=== PATIENT | female | born 1930 | race Caucasian/White ===

== ENCOUNTER 2016-04-28 17:22 | Emergency (ER) | payer MEDICARE, OTHER ==
[~2016-04-28] VITALS: Ht 157.5 cm; Wt 46.0 kg
[~2016-04-28 17:22] MED LIST: DICL50 PO; FENT50DI T-DERMAL; LISI10 PO; MEVA40TA6 PO; MISO200 PO; TRAM50 PO
[2016-04-28 17:25] VITALS: BP 133/71; PULSE 86; RESP 18; TEMP 98; O2SAT 96
[2016-04-28] MEDS ORDERED: TRAM50TA PO (17:36)
[2016-04-28] MEDS ORDERED: ZANT150T2 PO (17:36)
[2016-04-28] MEDS ORDERED: FENT50DI T-DERMAL (17:36)
[2016-04-28] MEDS ORDERED: LOVA40TA PO (17:36)
[2016-04-28] MEDS ORDERED: LISI10TA3 PO (17:36)
[2016-04-28] MEDS ORDERED: DICL100T PO (17:36)
[2016-04-28] MEDS ORDERED: MISO200T PO (17:36)
--- NOTE | 2016-04-28 18:34 | PD ---
HPI Chief Complaint: Hip Injury Time Seen by Provider: 18:31 Travel History International Travel<30 days: No Contact w/Intl Traveler<30days: No Traveled to known affect area: No History of Present Illness HPI 85-year-old female that presents to the ED for evaluation of trip and fall. Patient came here by ambulance from assisted living facility. Patient apparently had a trip and fall into her left side and has been having pain on her left hip. She was on the floor for a couple of minutes when staff showed up and try to help her back into her feet but she was not able to put any weight on the left hip. Ambulance was called and they brought her here. 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 She states that she has 3 out of 10 pain in the hip as well as she doesn't move she doesn't really have much pain. Pain is reproducible with touch as well as with movement. She is able to move it but not put weight on it. She denies any prior injuries to this area. She denies any head injury or loss of consciousness. Denies any blood thinners. No abdominal pain. No nausea or vomiting. She does have an allergic to tetracyclines. Pain does not radiate. Pain stays mainly on the hip. PFSH Past Medical History Arthritis: Yes (rheumatoid) Blood Disorders: No Heart Rhythm Problems: No Cardiac Catheterization: No Cardiovascular Problems: Yes High Cholesterol: Yes Congestive Heart Failure: No Diabetes: No Diminished Hearing: No Hypertension: No Musculoskeletal: Yes (SPINAL STENOSIS) Respiratory: Yes (COPD) Immunizations Current: Yes Myocardial Infarction: No Past Surgical History Cholecystectomy: Yes Coronary Artery Bypass Graft: No Thoracic Surgery: Yes (L. MASTECTOMY AND LUMPECTOMY) Other Surgery: Yes (LEFT BREST MASTECTOMY WITH LYMP REMOVAL) Social History Alcohol Use: No Tobacco Use: Yes (<1 ppd) Substance Use: No Allergies-Medications (Allergen,Severity, Reaction): Coded Allergies: Tetracyclines (Verified Allergy, Severe, TONGUE SWELLS, 04/28/16) TONGUE SWELLS Reported Meds & Prescriptions Reported Meds & Active Scripts Active Walker Rolling/GetGo (Device) 1 Mis Mis 1 Ea .ROUTE DIRECTED Diclofenac Sodium DR (Diclofenac Sodium) 75 Mg Tabdr 75 Mg PO BID PRN Lortab (Hydrocodone-Acetaminophen) 5-325 Mg Tab 1 Tab PO Q6H PRN Reported Diclofenac Sodium ER 24 HR (Diclofenac Sodium) 100 Mg Sonia 50 Mg PO DAILY Fentanyl Patch 72 HR (Fentanyl) 50 Mcg/Hr Patch 50 Mcg T-DERMAL Q72H Remove old patch when new one placed. Lisinopril 10 Mg Tab 10 Mg PO DAILY Lovastatin 40 Mg Tab 40 Mg PO DAILY Misoprostol 200 Mcg Tab 200 Mcg PO DAILY Tramadol (Tramadol HCl) 50 Mg Tab 50 Mg PO Q8H PRN Zantac (Ranitidine HCl) 150 Mg Tab 150 Mg PO BID Review of Systems General / Constitutional: No: Fever, Chills, Weight Gain, Weight Loss, Other Eyes: No: Diploplia, Blurred Vision, Photophobia, Drainage, Redness, Foreign Body Sensation, Pain, Tearing, Blind Spots, Visual changes, Blindness, Other HENT: No: Headaches, Vertigo, Lightheadedness, Sore Throat, Rhinitis, Rhinorrhea, Congestion, Nosebleed, Neck Stiffness, Neck Pain, Masses, Gingival Bleeding, Dental Difficulties, Ear Discharge, Earache, Other Cardiovascular: No: Chest Pain or Discomfort, Palpitations, Irregular Rhythm, Tachycardia, Diaphoresis, Syncope, Dyspnea on exertion, Varicosities, Edema, Cyanosis, Varicosities, Phlebitis, Claudication, Other Respiratory: No: Cough, Shortness of Breath, Wheezing, Sneezing, Orthopnea, Hemoptysis, Stridor, Night Sweats, Pleuritic Pain, Other Gastrointestinal: No: Nausea, Vomiting, Diarrhea, Abdominal Pain, Hematemesis, Hematochezia, Constipation, Changes in Bowel Habits, Indigestion, Dysphagia, Loss of Appetite, Other Genitourinary: No: Urgency, Frequency, Dysuria, Nocturia, Hematuria, Decreased Urinary Output, Oliguria, Hesitancy, Dribbling, Incontinence, Pelvic Pain, Flank Pain, Dyspareunia, Discharge, Dysmenorrhea, Menorrhagia, Metorrhagia, Vaginal Bleeding, Other Musculoskeletal: Positive: Limited ROM, Pain, No: Myalgias, Arthralgias, Weakness, Cramping, Edema, Atrophy, Other Skin: No Rash, No Itching, No Dryness, No Lumps, No Hives, No Change in Pigmentation, No Change in nails, No Alopecia, No Lesions, No Breast Lumps, No Breast Tenderness, No Breast Swelling, No Other Neurologic: No: Weakness, Dizziness, Syncope, Focal Abnormalities, Coordination Problem, Tremor, Ataxia, Headache, Change in Mentation, Slurred Speech, Paresthesia, Incontinence, Seizures, Sensory Disturbance, Other Psychiatric: No: Anxiety, Depression, Suicidal Ideations, Disorder of Thought, Mood Disorder, Substance Abuse, Homicidal Ideation, Other Endocrine: No: Heat Intolerance, Cold Intolerance, Polyuria, Polydipsia, Other Hematologic/Lymphatic: No: Easy Bruising, Lymph Node Enlargement, Other Physical Exam Narrative GENERAL: SKIN: Warm and dry. HEAD: Atraumatic. Normocephalic. EYES: Pupils equal and round 4 mm reactive to light and accommodation. No scleral icterus. No injection or drainage. ENT: No nasal bleeding or discharge. Mucous membranes pink and moist. Tongue is midline. No Uvula deviation. NECK: Trachea midline. No JVD. CARDIOVASCULAR: Regular rate and rhythm. No murmurs, S3, S4. RESPIRATORY: No accessory muscle use. Clear to auscultation. Breath sounds equal bilaterally. GASTROINTESTINAL: Abdomen soft, non-tender, nondistended. Hepatic and splenic margins not palpable. MUSCULOSKELETAL: Extremities without clubbing, cyanosis, or edema. No obvious deformities. Full range of motion of the upper extremities with no pain. No lumbar, thoracic, cervical spine tenderness to palpation. Patient able to move the left hip but has pain on the lateral aspect of the hip. No obvious bruising or deformity noted. 2+ pulses bilaterally. Neurovascular intact. Knees and ankles as well as the toes appear to be intact. Feet appear to be intact. NEUROLOGICAL: Awake and alert. No obvious cranial nerve deficits. Motor grossly within normal limits. Five out of 5 muscle strength in the arms and legs. Normal speech. PSYCHIATRIC: Appropriate mood and affect; insight and judgment normal. Data Data Last Documented VS Vital Signs Date Time Temp Pulse Resp B/P Pulse Ox O2 Delivery O2 Flow Rate FiO2 04/28/16 18:57 18 98 04/28/16 17:25 98.0 86 133/71 Orders Hip, Uni(Ap&Lat) W Ap Pelvis (04/28/16 ) Ct Hip W/O Contrast (04/28/16 ) MDM Medical Decision Making Medical Screen Exam Complete: Yes Emergency Medical Condition: Yes Medical Record Reviewed: Yes Interpretation(s) Last Impressions Lower Extremity CT 04/28/16 0000 Signed Impressions: Service Date/Time: Thursday, April 28, 2016 20:05 - CONCLUSION: 1. Nondisplaced fractures through the superior and central portion of the acetabulum and through the inferior pubic ramus. 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 Amandeep Cox MD Hip and Pelvis X-Ray 04/28/16 0000 Signed Impressions: Service Date/Time: Thursday, April 28, 2016 17:45 - CONCLUSION: 1. Subtle lucency of superior acetabulum which may represent a nondisplaced fracture. This could be confirmed with CT. Amandeep Cox MD Differential Diagnosis Fall versus fracture versus contusion Narrative Course 85-year-old female that presents to the ED for evaluation of fall to the left hip. Patient was properly examined and was found to have signs and symptoms consistent with appears to be hip injury. X-rays were ordered. X-ray showed possible fracture of the cerebellum. Recommendation for CT. CT was ordered and showed a fracture of the acetabulum as well as pelvis. Case was discussed with my attending who was made aware of all findings as well as the fact the patient and she comes from assisted living facility with assistance from the facility already. My attending agrees this are non surgical fractures and no immediate ortho consult required. My attending recommends that we discuss the case with the patient. I discussed with the patient possibility of admission for this versus sending her back to this her [facility] facility. She prefers to go back. She understands that she needs to follow up with orthopedic surgeon. Patient will be sent home with prescription for Lortab, diclofenac sodium, walker. Patient states that she already uses a wheelchair at home. Patient understands reasons to come back. Patient was given results of the imaging. account services manager was contacted for transfer back to assisted living facility. See ED worsening symptoms. Diagnosis Primary Impression: Acetabulum fracture, left Qualified Code: S32.402A - Closed nondisplaced fracture of left acetabulum, unspecified portion of acetabulum, initial encounter Referrals: Isak Mejia MD Patient Instructions: Narcotic given in the ED Additional Instructions: Patient is to be nonweightbearing. Follow up with orthopedic doctor. Take medication as needed. Patient is to go about the facility she requires assistance including walker or wheelchair. See ED for any worsening symptoms. Med/Other Pt SpecificInfo: Prescription(s) given Scripts Walker Rolling/GetGo 1 Mis Mis #1 Ea .route As Directed Prov:Suraj Figueroa MD 04/28/[address] 75 Mg Tabdr75 Mg PO BID PRN (PAIN SCALE 1 TO 10) #20 TAB Prov:Suraj Figueroa MD 04/28/16 Hydrocodone-Acetaminophen (Lortab)5-325 Mg Tab1 Tab PO Q6H PRN (PAIN) #20 TAB Prov:Suraj Figueroa MD 04/28/16 Disposition: 01 DISCHARGE HOME Condition: Stable Domingo oHffman Apr 28, 2016 18:34
--- NOTE | 2016-04-28 19:27 | RADRPT ---
EXAM DATE/TIME: 04/28/2016 17:45 [facility] COMPARISON: No previous studies available for comparison. INDICATIONS : Left hip pain after fall today. MEDICAL HISTORY : None. SURGICAL HISTORY : None. ENCOUNTER: Initial ACUITY: 1 day PAIN SCORE: 5/10 LOCATION: Left Hip. FINDINGS: Proximal left femur appears intact. There is a subtle lucency through the superior acetabulum that ma y represent a nondisplaced fracture. This could be confirmed with CT examination. Bones are osteopeni c. CONCLUSION: 1. Subtle lucency of superior acetabulum which may represent a nondisplaced fracture. This could be c onfirmed with CT. Amandeep Cox MD on April 28, 2016 at 19:23 Board Certified Radiologist. This report was verified electronically.
--- NOTE | 2016-04-28 21:05 | RADRPT ---
EXAM DATE/TIME: 04/28/2016 20:05 [facility] COMPARISON: No previous studies available for comparison. INDICATIONS : Trauma; fall. Patient complains of left hip pain. RADIATION DOSE: 6.60 CTDIvol (mGy) MEDICAL HISTORY : Chronic obstructive pulmonary disease. SURGICAL HISTORY : Cholecystectomy. Mastectomy, left ENCOUNTER: Initial ACUITY: 1 day PAIN SCALE: 7/10 LOCATION: Left hip TECHNIQUE: Volumetric scanning of the hip was performed. Using automated exposure control and adjustment of the mA and/or kV according to patient size, radiation dose was kept as low as reasonably achievable to o btain optimal diagnostic quality images. FINDINGS: There are nondisplaced fractures through the superior and central portion of the acetabulum and throu gh the inferior pubic ramus. The proximal left femur is intact. No dislocation. CONCLUSION: 1. Nondisplaced fractures through the superior and central portion of the acetabulum and through the inferior pubic ramus. 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 Amandeep Cox MD on April 28, 2016 at 20:38 Board Certified Radiologist. This report was verified electronically.
[2016-04-28] MEDS ORDERED: DICL75TA PO (21:11)
[2016-04-28] MEDS ORDERED: HYDR-3533 PO (21:11)
[2016-04-28] MEDS ORDERED: GETGO ROLLING W1 MI1 (21:11)
[2016-04-29 07:08] VITALS: BP 174/78; PULSE 88
[2016-04-29] MEDS ORDERED: ACETAMINOPHEN/HYDROcodone 325 MG/5 MG TAB PO ONE (07:15)
== END 2016-04-29 09:43 | disposition home or self-care (01) ==
LOC: NEPE 17:22 → NEPA 04-29 09:43
DX: S32.492A Other specified fracture of left acetabulum, initial encounter for closed fracture (principal); M06.9 Rheumatoid arthritis, unspecified; E78.00 Pure hypercholesterolemia, unspecified; M48.00 Spinal stenosis, site unspecified; F17.210 Nicotine dependence, cigarettes, uncomplicated; W01.0XXA Fall on same level from slipping, tripping and stumbling without subsequent striking against object, initial encounter; Y93.9 Activity, unspecified; Y92.9 Unspecified place or not applicable; Y99.9 Unspecified external cause status
CPT/HCPCS: 73502; 73700

== ENCOUNTER 2016-06-09 23:59 | Emergency (ER) | payer MEDICARE, OTHER ==
[~2016-06-09] VITALS: Ht 157.5 cm; Wt 43.0 kg
[~2016-06-09 23:59] MED LIST changes: +DICL100T PO; -DICL50 PO; +DICL75TA PO; +GETGO ROLLING W1 MI1; +HYDR-3533 PO; -LISI10 PO; +LISI10TA3 PO; +LOVA40TA PO; -MEVA40TA6 PO; -MISO200 PO; +MISO200T PO; -TRAM50 PO; +TRAM50TA PO; +ZANT150T2 PO
[2016-06-10 00:03] VITALS: BP 207/91; PULSE 93; RESP 21; TEMP 97.6; O2SAT 98
[2016-06-10] MEDS ORDERED: SODIUM CHLOR 0.9% 1000 ML INJ 1,000 ML IV ONE (00:15)
[2016-06-10] MEDS ORDERED: ONDANSETRON HCL 4 MG/2 ML VIAL IV PUSH ONE (00:15)
--- NOTE | 2016-06-10 00:20 | PD ---
HPI Chief Complaint: Cold / Flu Symptoms Time Seen by Provider: 00:07 Travel History International Travel<30 days: No Contact w/Intl Traveler<30days: No Traveled to known affect area: No History of Present Illness HPI 85-year-old female complains of abdominal cramping with nausea vomiting and diarrhea. Patient states that the symptoms started around noontime today. Patient states that abdominal pain is mild intermittent cramping pain diffuse over the abdomen. Patient denies any pain radiation. Patient denies any headache. Patient denies any chest pain or shortness of breath. Patient states that she has intermittent nausea vomiting and diarrhea. Patient denies any dysuria or frequency. Patient denies any vaginal discharge or bleeding. Patient denies any fever chills. Patient denies recent travel. EMS was called. Patient was transported to the ED. EMS personnel reported Patient was in and out of atrial fibrillation on the way to the ED on the monitor. Patient denies any history of cardiac arrhythmia. Patient denies history hypertension, diabetes, dyslipidemia. Patient has history of a back pain and on pain medications. PFSH Past Medical History Arthritis: Yes (rheumatoid) Blood Disorders: No Heart Rhythm Problems: No Cardiac Catheterization: No Cardiovascular Problems: Yes High Cholesterol: Yes Congestive Heart Failure: No Diabetes: No Diminished Hearing: No Hypertension: No Musculoskeletal: Yes (SPINAL STENOSIS) Respiratory: Yes (COPD) Immunizations Current: Yes Myocardial Infarction: No ?: Not Past Surgical History Cholecystectomy: Yes Coronary Artery Bypass Graft: No Thoracic Surgery: Yes (L. MASTECTOMY AND LUMPECTOMY) Other Surgery: Yes (LEFT BREST MASTECTOMY WITH LYMP REMOVAL) Social History Alcohol Use: No Tobacco Use: No Substance Use: No Allergies-Medications (Allergen,Severity, Reaction): Coded Allergies: Tetracyclines (Verified Allergy, Severe, TONGUE SWELLS, 06/10/16) TONGUE SWELLS Reported Meds & Prescriptions Reported Meds & Active Scripts Active Walker Rolling/GetGo (Device) 1 Mis Mis 1 Ea .ROUTE DIRECTED Lortab (Hydrocodone-Acetaminophen) 5-325 Mg Tab 1 Tab PO Q6H PRN Reported Fentanyl Patch 72 HR (Fentanyl) 50 Mcg/Hr Patch 50 Mcg T-DERMAL Q72H Remove old patch when new one placed. Tramadol (Tramadol HCl) 50 Mg Tab 50 Mg PO Q8H PRN Review of Systems General / Constitutional: No: Fever Eyes: No: Visual changes HENT: No: Headaches Cardiovascular: No: Chest Pain or Discomfort Respiratory: No: Shortness of Breath Gastrointestinal: Positive: Nausea, Vomiting, Diarrhea, Abdominal Pain Genitourinary: No: Dysuria Musculoskeletal: No: Pain Skin: No Rash Neurologic: No: Weakness Psychiatric: No: Depression Endocrine: No: Polydipsia Hematologic/Lymphatic: No: Easy Bruising Physical Exam Narrative GENERAL: Well-nourished, well-developed patient. SKIN: Warm and dry. HEAD: Normocephalic. EYES: No scleral icterus. No injection or drainage. NECK: Supple, trachea midline. No JVD or lymphadenopathy. CARDIOVASCULAR: Regular rate and rhythm without murmurs, gallops, or rubs. RESPIRATORY: Breath sounds equal bilaterally. No accessory muscle use. GASTROINTESTINAL: Abdomen soft, non-tender, nondistended. MUSCULOSKELETAL: No cyanosis, or edema. BACK: Nontender without obvious deformity. No CVA tenderness. Neurologic exam normal. Data Data Last Documented VS Vital Signs Date Time Temp Pulse Resp B/P Pulse Ox O2 Delivery O2 Flow Rate FiO2 06/10/16 02:51 92 18 97 06/10/16 00:30 168/76 06/10/16 00:10 Room Air 06/10/16 00:03 97.6 Orders Electrocardiogram (06/10/16 00:07) Complete Blood Count With Diff (06/10/16 00:07) Comprehensive Metabolic Panel (06/10/16 00:07) Prothrombin Time / Inr (Pt) (06/10/16 00:07) Act Partial Throm Time (Ptt) (06/10/16 00:07) Lipase (06/10/16 00:07) Urinalysis - C+S If Indicated (06/10/16 00:07) Chest, Single Ap (06/10/16 00:07) Iv Access Insert/Monitor (06/10/16 00:07) Ecg Monitoring (06/10/16 00:07) Oximetry (06/10/16 00:07) Sodium Chlor 0.9% 1000 Ml Inj (Ns 1000 M (06/10/16 00:15) Ondansetron Inj (Zofran Inj) (06/10/16 00:15) Creatine Kinase (Cpk) (06/10/16 00:07) Troponin I (06/10/16 00:07) Thyroid Stimulating Hormone (06/10/16 00:07) Urine Culture (06/10/16 00:40) Labs Laboratory Tests Test 06/10/16 06/10/16 00:15 00:40 White Blood Count 17.1 TH/MM3 Red Blood Count 4.21 MIL/MM3 Hemoglobin 13.2 GM/DL Hematocrit 40.0 % Mean Corpuscular Volume 95.1 FL Mean Corpuscular Hemoglobin 31.4 PG Mean Corpuscular Hemoglobin 33.0 % Concent Red Cell Distribution Width 14.3 % Platelet Count 265 TH/MM3 Mean Platelet Volume 9.3 FL Neutrophils (%) (Auto) 89.6 % Lymphocytes (%) (Auto) 4.3 % Monocytes (%) (Auto) 4.5 % Eosinophils (%) (Auto) 0.4 % Basophils (%) (Auto) 1.2 % Neutrophils # (Auto) 15.3 TH/MM3 Lymphocytes # (Auto) 0.7 TH/MM3 Monocytes # (Auto) 0.8 TH/MM3 Eosinophils # (Auto) 0.1 TH/MM3 Basophils # (Auto) 0.2 TH/MM3 CBC Comment DIFF FINAL Differential Comment Prothrombin Time 11.0 SEC Prothromb Time International 1.0 RATIO Ratio Activated Partial 24.0 SEC Thromboplast Time Sodium Level 141 MEQ/L Potassium Level 4.4 MEQ/L Chloride Level 106 MEQ/L Carbon Dioxide Level 26.8 MEQ/L Anion Gap 8 MEQ/L Blood Urea Nitrogen 27 MG/DL Creatinine 1.07 MG/DL Estimat Glomerular Filtration 49 ML/MIN Rate Random Glucose 157 MG/DL Calcium Level 8.9 MG/DL Aspartate Amino Transf 15 U/L (AST/SGOT) Alanine Aminotransferase 21 U/L (ALT/SGPT) Albumin 4.2 GM/DL Lipase 112 U/L Urine Color YELLOW Urine Turbidity HAZY Urine pH 5.5 Urine Specific [place] 1.017 Urine Protein 30 mg/dL Urine Glucose (UA) NEG mg/dL Urine Ketones NEG mg/dL Urine Occult Blood NEG Urine Nitrite NEG Urine Bilirubin NEG Urine Urobilinogen LESS THAN 2.0 MG/DL Urine Leukocyte Esterase MOD Urine RBC 1 /hpf Urine WBC 16 /hpf Urine Squamous Epithelial <1 /hpf Cells Urine Bacteria RARE /hpf Urine Mucus FEW /lpf Microscopic Urinalysis Comment CATH-CULTURE IND MDM Medical Decision Making Medical Screen Exam Complete: Yes Emergency Medical Condition: Yes Interpretation(s) 12:20 AM. EKG shows sinus rhythm with frequent supraventricular premature complexes. Patient has sinus rhythm with frequent PACs on monitor and not A. fib with RVR. Creatinine 1.072. Glucose 157. TSH 8.45. BUN 27. UA positive with WBC and bacteria. Differential Diagnosis Differential diagnosis including gastroenteritis, electrolyte abnormality, dehydration, new onset atrial fibrillation, paroxysmal atrial fibrillation. Narrative Course 85-year-old female with abdominal cramping, nausea vomiting diarrhea. Patient has paroxysmal atrial fibrillation on monitor. Normal saline solution 1 L bolus. Zofran 4 mg IV. Bactrim DS one tablet by mouth given. Diagnosis Primary Impression: Gastroenteritis Additional Impression: UTI (urinary tract infection) Qualified Code: N30.00 - Acute cystitis without hematuria Patient Instructions: General Instructions Additional Instructions: Clear fluids for 24 hours and advance as tolerated. Zofran and Lomotil as needed. Bactrim DS as directed. Follow-up with personal physician. Return if persistent problem or worse. Med/Other Pt SpecificInfo: Prescription(s) given Scripts Diphenoxylate-Atropine (Lomotil)2.5-0.025 Mg Tab1 Tab PO Q6H PRN (DIARRHEA) #10 TAB Ref 0 Prov:Donald Vincent MD 06/10/16 Ondansetron Odt (Zofran Odt)4 Mg Tab4 Mg SL Q6HR PRN (Nausea/Vomiting) #10 TAB Prov:Donald Vincent MD 06/10/16 Sulfamethoxazole-Trimethoprim (Bactrim DS)800-160 Mg Tab1 Tab PO BID #6 TAB Prov:Donald Vincent MD 06/10/16 Disposition: 01 DISCHARGE HOME Condition: Stable Donald Vincent MD Jun 10, 2016 00:20
--- NOTE | 2016-06-10 00:25 | RADRPT ---
EXAM DATE/TIME: 06/10/2016 00:20 [facility] COMPARISON: CHEST SINGLE AP, April 30, 2015, 2:16. INDICATIONS : Congestion. MEDICAL HISTORY : None. SURGICAL HISTORY : None. ENCOUNTER: Initial ACUITY: 2 days PAIN SCORE: 7/10 LOCATION: Bilateral chest FINDINGS: A single view of the chest demonstrates the lungs to be symmetrically aerated without evidence of mas s, infiltrate or effusion. The lungs are hyperaerated bilaterally. The cardiomediastinal contours ar e unremarkable. Prior cement augmentation at T12. Mild scoliotic curvature of the thoracic spine. Tabitha gical clips within the left axilla. CONCLUSION: 1. Hyperinflation suggesting COPD. No acute infiltrate or effusion. Brian Portillo Jr., MD on June 10, 2016 at 0:22 Board Certified Radiologist. This report was verified electronically.
[2016-06-10 00:30] VITALS: BP 168/76; PULSE 93; RESP 18; O2SAT 96
[2016-06-10 00:41] LABS: AUTOMATED NEUTROPHIL # 15.3 TH/MM3 (1.8-7.7); BASOPHIL # 0.2 TH/MM3 (0-0.2); BASOPHIL % 1.2 % (0.0-2.0); EOSINOPHIL # 0.1 TH/MM3 (0-0.4); EOSINOPHIL % 0.4 % (0.0-4.0); HEMO FLAGS DIFF FINAL; LYMPH % 4.3 % (9.0-44.0); LYMPHOCYTE # 0.7 TH/MM3 (1.0-4.8); MEAN CELL VOLUME 95.1 FL (80.0-100.0); MEAN CORPUSCULAR HEMOGLOBIN 31.4 PG (27.0-34.0); MONO % 4.5 % (0.0-8.0); NEUT % 89.6 % (16.0-70.0); PLATELET COUNT 265 TH/MM3 (150-450); RED BLOOD COUNT 4.21 MIL/MM3 (4.00-5.30); RED CELL DISTRIBUTION WIDTH 14.3 % (11.6-17.2); WHITE BLOOD COUNT 17.1 TH/MM3 (4.0-11.0)
[2016-06-10 00:53] LABS: ALT (GPT) 21 U/L (10-53); ANION GAP 8 MEQ/L (5-15); AST (GOT) 15 U/L (15-37); BICARBONATE 26.8 MEQ/L (21.0-32.0); BLOOD UREA NITROGEN 27 MG/DL (7-18); CHLORIDE 106 MEQ/L (98-107); GLOMERULAR FILTRATION RATE 49 ML/MIN (>89); POTASSIUM 4.4 MEQ/L (3.5-5.1); SODIUM (NA) 141 MEQ/L (136-145)
[2016-06-10 00:57] LABS: BACTERIA, URINE RARE /hpf; BLOOD, URINE NEG (NEG); COMMENT (UR) CATH-CULTURE IND; CULTURE IF INDICATED CATH CULTURE IND; GLUCOSE,URINE NEG (NEG); KETONE, URINE NEG (NEG); MUCUS URINE FEW /lpf (OCC); NITRITE,URINE NEG (NEG); PH, URINE 5.5 (5.0-8.5); SQUAMOUS EPITHELIAL CELL URINE <1 /hpf (0-5); URINE COLOR YELLOW (YELLW/STRAW)
[2016-06-10 02:51] VITALS: PULSE 92; RESP 18; O2SAT 97
[2016-06-10] MEDS ORDERED: ZOFR4TAB3 SL (03:00)
[2016-06-10] MEDS ORDERED: LOMO2.5T PO (03:00)
[2016-06-10] MEDS ORDERED: BACT800T5 PO (03:00)
[2016-06-10] MEDS ORDERED: SULFAMETHOXAZOLE-TRIMETHOPRIM DS 800-160 MG TAB PO ONE (03:00)
[2016-06-10 03:13] LABS: ALKALINE PHOSPHATASE 116 U/L (45-117); CREATINE KINASE 60 U/L (26-192); TOTAL BILIRUBIN ADULT 0.4 MG/DL (0.2-1.0)
[2016-06-10 10:28] VITALS: BP 156/82; PULSE 85; RESP 17; O2SAT 96
[2016-06-10 12:31] VITALS: BP 145/82
--- NOTE | 2016-06-10 15:39 | EKG ---
Date Performed: 06/10/2016 Time Performed: 00:05:21 PTAGE: 85 years EKG: Sinus rhythm WITH FREQUENT SUPRAVENTRICULAR PREMATURE COMPLEXES NONSPECIFIC ST & T-WAVE ABNORMALITY Slight variat ion in the nonspecific ST-T wave changes compared to the prior tracing ABNORMAL RHYTHM ECG PREVIOUS TRACING : 04/30/2015 03.49 DOCTOR: Gabe Balckman Interpretating Date/Time 06/10/2016 15:37:38
== END 2016-06-10 13:14 | disposition home or self-care (01) ==
LOC: NEPC 23:59
DX: K52.9 Noninfective gastroenteritis and colitis, unspecified (principal); N30.00 Acute cystitis without hematuria; I48.0 Paroxysmal atrial fibrillation; R94.31 Abnormal electrocardiogram [ECG] [EKG]; B96.20 Unspecified Escherichia coli [E. coli] as the cause of diseases classified elsewhere; B95.4 Other streptococcus as the cause of diseases classified elsewhere; E78.00 Pure hypercholesterolemia, unspecified; Z87.39 Personal history of other diseases of the musculoskeletal system and connective tissue; Z86.79 Personal history of other diseases of the circulatory system; Z87.09 Personal history of other diseases of the respiratory system
CPT/HCPCS: 71010; 80053; 81001; 82550; 83690; 84443; 84484; 85025; 85610; 85730; 87077; 87086; 87186; 93005; 96361; 96374; 99284; J2405; J7030

== ENCOUNTER 2016-11-29 20:49 | Emergency (ER) | payer MEDICARE, OTHER ==
[~2016-11-29] VITALS: Ht 157.5 cm; Wt 50.0 kg
[~2016-11-29 20:49] MED LIST changes: +BACT800T5 PO; -DICL100T PO; -DICL75TA PO; -LISI10TA3 PO; +LOMO2.5T PO; -LOVA40TA PO; -MISO200T PO; -ZANT150T2 PO; +ZOFR4TAB3 SL
[2016-11-29 20:59] VITALS: BP 137/70; PULSE 111; RESP 18; O2SAT 95
[2016-11-29] MEDS ORDERED: SODIUM CHLORIDE 0.9% FLUSH 10 ML FLUSH IVF PRN (21:30)
[2016-11-29 21:32] VITALS: RESP 18; O2SAT 97
--- NOTE | 2016-11-29 22:02 | RADRPT ---
EXAM DATE/TIME: 11/29/2016 21:50 [facility] COMPARISON: CHEST SINGLE AP, June 10, 2016, 0:20. INDICATIONS : Shortness of breath and cough. MEDICAL HISTORY : None. SURGICAL HISTORY : None. ENCOUNTER: Initial ACUITY: 1 day PAIN SCORE: 0/10 LOCATION: Bilateral chest FINDINGS: A single view of the chest demonstrates the lungs to be symmetrically aerated without evidence of mas s, infiltrate or effusion. Lungs appear hyperexpanded. The cardiomediastinal contours are unremarkab le. Osseous structures are intact. CONCLUSION: No evidence of acute cardiopulmonary disease. Nam Sanchez MD on November 29, 2016 at 22:00 Board Certified Radiologist. This report was verified electronically.
--- NOTE | 2016-11-29 22:17 | PD ---
HPI Chief Complaint: Cardiac Complaint Time Seen by Provider: 21:22 Travel History International Travel<30 days: No Contact w/Intl Traveler<30days: No Traveled to known affect area: No History of Present Illness HPI 86-year-old female with PMH of RA, GERD, hiatal hernia, breast cancer, osteoporosis, solitary pulmonary nodule presents to ED for evaluation of 3 day history of nonproductive cough. Patient endorses feeling weak and states that she feels as if her legs will give way. She denies fevers, chills, chest pain, palpitations, dyspnea on exertion, abdominal pain, nausea, vomiting, dysuria, back pain, lower extremity edema. No treatment attempted at home. Patient lived alone until recently, now living in an [facility]. PFSH Past Medical History Arthritis: Yes (rheumatoid) Blood Disorders: No Heart Rhythm Problems: No Cardiac Catheterization: No Cardiovascular Problems: Yes High Cholesterol: Yes Congestive Heart Failure: No COPD: Yes Diabetes: No Diminished Hearing: Yes ([place]) Hypertension: No Musculoskeletal: Yes (SPINAL STENOSIS) Respiratory: Yes (COPD) Immunizations Current: Yes Myocardial Infarction: No Tetanus Vaccination: < 5 Years Influenza Vaccination: Yes Menopausal: Yes Past Surgical History Cholecystectomy: Yes Coronary Artery Bypass Graft: No Thoracic Surgery: Yes (L. MASTECTOMY AND LUMPECTOMY) Other Surgery: Yes (LEFT LUMPECTOMY (1994)) Social History Alcohol Use: No Tobacco Use: Yes (1 PPD) Substance Use: No Allergies-Medications (Allergen,Severity, Reaction): Coded Allergies: doxycycline (Verified Allergy, Severe, TONGUE SWELLS, 11/29/16) TONGUE SWELLS minocycline (Verified Allergy, Severe, TONGUE SWELLS, 11/29/16) TONGUE SWELLS tigecycline (Verified Allergy, Severe, TONGUE SWELLS, 11/29/16) TONGUE SWELLS Reported Meds & Prescriptions Reported Meds & Active Scripts Active Lomotil (Diphenoxylate-Atropine) 2.5-0.025 Mg Tab 1 Tab PO Q6H PRN Zofran Odt (Ondansetron Odt) 4 Mg Tab 4 Mg SL Q6HR PRN Bactrim DS (Sulfamethoxazole-Trimethoprim) 800-160 Mg Tab 1 Tab PO BID Walker Rolling/GetGo (Device) 1 Mis Mis 1 Ea .ROUTE DIRECTED Lortab (Hydrocodone-Acetaminophen) 5-325 Mg Tab 1 Tab PO Q6H PRN Reported Fentanyl Patch 72 HR (Fentanyl) 50 Mcg/Hr Patch 50 Mcg T-DERMAL Q72H Remove old patch when new one placed. Tramadol (Tramadol HCl) 50 Mg Tab 50 Mg PO Q8H PRN Review of Systems Except as stated in HPI: all other systems reviewed are Neg Physical Exam Narrative GENERAL: Well-nourished, well-developed pleasant white female in no acute distress. SKIN: Focused skin assessment warm/dry. HEAD: Normocephalic. EYES: No scleral icterus. No injection or drainage. NECK: Supple, trachea midline. No JVD or lymphadenopathy. CARDIOVASCULAR: Regular rate and rhythm without murmurs, gallops, or rubs. RESPIRATORY: Breath sounds equal bilaterally, wet sounding cough. No accessory muscle use. GASTROINTESTINAL: Abdomen soft, non-tender, nondistended. Active bowel sounds. MUSCULOSKELETAL: No cyanosis, or edema. 5/5 strength in the bilateral lower extremities. BACK: Nontender without obvious deformity. No CVA tenderness. Data Data Last Documented VS Vital Signs Date Time Temp Pulse Resp B/P (MAP) Pulse Ox O2 Delivery O2 Flow Rate FiO2 11/30/16 10:38 11/30/16 07:34 91 18 96 Room Air 11/30/16 07:34 98.5 Orders Orders Complete Blood Count With Diff (11/29/16 21:28) Comprehensive Metabolic Panel (11/29/16 21:28) B-Type Natriuretic Peptide (11/29/16 21:28) Act Partial Throm Time (Ptt) (11/29/16 21:28) Prothrombin Time / Inr (Pt) (11/29/16 21:28) Ckmb (Isoenzyme) Profile (11/29/16 21:28) Troponin I (11/29/16 21:28) Urinalysis - C+S If Indicated (11/29/16 21:28) Iv Access Insert/Monitor (11/29/16 21:28) Electrocardiogram (11/29/16 21:28) Ecg Monitoring (11/29/16 21:28) Oximetry (11/29/16 21:28) Chest, Single Ap (11/29/16 21:28) Sodium Chloride 0.9% Flush (Ns Flush) (11/29/16 21:30) CKMB (11/29/16 22:00) CKMB% (11/29/16 22:00) Labs Laboratory Tests Test 11/29/16 22:00 White Blood Count 12.5 TH/MM3 Red Blood Count 3.68 MIL/MM3 Hemoglobin 11.8 GM/DL Hematocrit 35.5 % Mean Corpuscular Volume 96.3 FL Mean Corpuscular Hemoglobin 32.1 PG Mean Corpuscular Hemoglobin Concent 33.3 % Red Cell Distribution Width 13.5 % Platelet Count 190 TH/MM3 Mean Platelet Volume 8.7 FL Neutrophils (%) (Auto) 91.8 % Lymphocytes (%) (Auto) 3.6 % Monocytes (%) (Auto) 4.3 % Eosinophils (%) (Auto) 0.1 % Basophils (%) (Auto) 0.2 % Neutrophils # (Auto) 11.5 TH/MM3 Lymphocytes # (Auto) 0.5 TH/MM3 Monocytes # (Auto) 0.5 TH/MM3 Eosinophils # (Auto) 0.0 TH/MM3 Basophils # (Auto) 0.0 TH/MM3 CBC Comment DIFF FINAL Differential Comment Prothrombin Time 11.3 SEC Prothromb Time International Ratio 1.0 RATIO Activated Partial Thromboplast Time 32.7 SEC Blood Urea Nitrogen 25 MG/DL Creatinine 1.13 MG/DL Random Glucose 158 MG/DL Total Protein 7.1 GM/DL Albumin 3.5 GM/DL Calcium Level 9.3 MG/DL Alkaline Phosphatase 79 U/L Aspartate Amino Transf (AST/SGOT) 46 U/L Alanine Aminotransferase (ALT/SGPT) 102 U/L Total Bilirubin 0.6 MG/DL Sodium Level 134 MEQ/L Potassium Level 3.8 MEQ/L Chloride Level 101 MEQ/L Carbon Dioxide Level 25.5 MEQ/L Anion Gap 8 MEQ/L Estimat Glomerular Filtration Rate 46 ML/MIN Total Creatine Kinase 160 U/L Creatine Kinase MB 2.2 NG/ML Troponin I 0.03 NG/ML B-Type Natriuretic Peptide 236 PG/ML MDM Medical Decision Making Medical Screen Exam Complete: Yes Emergency Medical Condition: Yes Differential Diagnosis PNA versus CHF versus COPD versus UTI versus other Narrative Course 86-year-old female with PMH of RA, GERD, hiatal hernia, breast cancer, osteoporosis, solitary pulmonary nodule presents to ED for evaluation of 3 day history of nonproductive cough. Patient endorses feeling weak and states that she feels as if her legs will give way. She denies fevers, chills, chest pain, palpitations, dyspnea on exertion, abdominal pain, nausea, vomiting, dysuria, back pain, lower extremity edema. No treatment attempted at home. Patient lived alone until recently, now living in an [facility]. Vitals reviewed. Physical exam reveals a nontoxic-appearing white female in no acute distress. She does have a rather wet sounding cough but the lung sounds are equal and clear. No suprapubic or CVA tenderness. No lower extremity edema. Equal strength in the BLE. EKG: rate 116, sinus tachycardia. Normal axis. No acute ST changes. Reviewed by Dr. Figueroa. CXR: No evidence of acute cardiopulmonary disease. Cardiac enzymes: Negative 1. CBC, CMP, UA pending. Patient is signed out to Dr. Figueroa at change of shift. Please see his note for disposition. Lakeisha Chi Nov 29, 2016 22:17
[2016-11-29 22:25] LABS: AUTOMATED NEUTROPHIL # 11.5 TH/MM3 (1.8-7.7); BASOPHIL % 0.2 % (0.0-2.0); EOSINOPHIL % 0.1 % (0.0-4.0); HEMATOCRIT 35.5 % (35.0-46.0); HEMO FLAGS DIFF FINAL; LYMPH % 3.6 % (9.0-44.0); LYMPHOCYTE # 0.5 TH/MM3 (1.0-4.8); MEAN CELL VOLUME 96.3 FL (80.0-100.0); MEAN CORPUSCULAR HEMOGLOBIN 32.1 PG (27.0-34.0); MEAN CORPUSCULAR HGB CONC 33.3 % (32.0-36.0); MONO % 4.3 % (0.0-8.0); NEUT % 91.8 % (16.0-70.0); PLATELET COUNT 190 TH/MM3 (150-450); RED BLOOD COUNT 3.68 MIL/MM3 (4.00-5.30); RED CELL DISTRIBUTION WIDTH 13.5 % (11.6-17.2); WHITE BLOOD COUNT 12.5 TH/MM3 (4.0-11.0)
[2016-11-29 23:00] VITALS: BP 137/70; PULSE 109; RESP 18; O2SAT 97
[2016-11-30 02:00] VITALS: BP 119/58; PULSE 111; RESP 18; O2SAT 97
[2016-11-30 04:13] LABS: ALKALINE PHOSPHATASE 79 U/L (45-117); ALT (GPT) 102 U/L (10-53); AST (GOT) 46 U/L (15-37); BLOOD UREA NITROGEN 25 MG/DL (7-18); GLOMERULAR FILTRATION RATE 46 ML/MIN (>89); SODIUM (NA) 134 MEQ/L (136-145); TOTAL BILIRUBIN ADULT 0.6 MG/DL (0.2-1.0)
[2016-11-30 04:14] LABS: ANION GAP 8 MEQ/L (5-15); BICARBONATE 25.5 MEQ/L (21.0-32.0); CHLORIDE 101 MEQ/L (98-107); CREATINE KINASE 160 U/L (26-192); POTASSIUM 3.8 MEQ/L (3.5-5.1)
[2016-11-30 04:15] LABS: APTT (PATIENT) 32.7 SEC (24.3-30.1); PROTHROMBIN TIME - PATIENT 11.3 SEC (9.8-11.6)
[2016-11-30 04:36] LABS: CKMB 2.2 NG/ML (0.5-3.6)
[2016-11-30 05:05] VITALS: BP 138/88; PULSE 100; RESP 18; O2SAT 99
[2016-11-30 07:34] VITALS: BP 159/76; PULSE 91; RESP 18; TEMP 98.5; O2SAT 96
--- NOTE | 2016-11-30 12:25 | EKG ---
Date Performed: 11/29/2016 Time Performed: 21:10:09 PTAGE: 86 years EKG: SINUS TACHYCARDIA PACs NONSPECIFIC ST-T WAVES THAT ARE MORE PROMINENT THAN THE PRIOR DOUGLAS Hernandez ABNORMAL ECG PREVIOUS TRACING : 06/10/2016 00.05 DOCTOR: Gabe Blackman Interpretating Date/Time 11/30/2016 12:24:42
--- NOTE | 2016-11-30 22:31 | PD ---
Data Data Last Documented VS Vital Signs Date Time Temp Pulse Resp B/P (MAP) Pulse Ox O2 Delivery O2 Flow Rate FiO2 11/30/16 10:38 11/30/16 07:34 91 18 96 Room Air 11/30/16 07:34 98.5 Orders Orders Complete Blood Count With Diff (11/29/16 21:28) Comprehensive Metabolic Panel (11/29/16 21:28) B-Type Natriuretic Peptide (11/29/16 21:28) Act Partial Throm Time (Ptt) (11/29/16 21:28) Prothrombin Time / Inr (Pt) (11/29/16 21:28) Ckmb (Isoenzyme) Profile (11/29/16:28) Troponin I (11/29/16:) Urinalysis - C+S If Indicated (11/29/16:28) Iv Access Insert/Monitor (11/29/16 21:28) Electrocardiogram (11/29/16 21:28) Ecg Monitoring (11/29/16:28) Oximetry (11/29/16:) Chest, Single Ap (11/29/16 21:28) Sodium Chloride 0.9% Flush (Ns Flush) (11/29/16 21:30) CKMB (11/29/16 22:00) CKMB% (11/29/16 22:00) Labs Laboratory Tests Test 11/29/16 22:00 White Blood Count 12.5 TH/MM3 Red Blood Count 3.68 MIL/MM3 Hemoglobin 11.8 GM/DL Hematocrit 35.5 % Mean Corpuscular Volume 96.3 FL Mean Corpuscular Hemoglobin 32.1 PG Mean Corpuscular Hemoglobin Concent 33.3 % Red Cell Distribution Width 13.5 % Platelet Count 190 TH/MM3 Mean Platelet Volume 8.7 FL Neutrophils (%) (Auto) 91.8 % Lymphocytes (%) (Auto) 3.6 % Monocytes (%) (Auto) 4.3 % Eosinophils (%) (Auto) 0.1 % Basophils (%) (Auto) 0.2 % Neutrophils # (Auto) 11.5 TH/MM3 Lymphocytes # (Auto) 0.5 TH/MM3 Monocytes # (Auto) 0.5 TH/MM3 Eosinophils # (Auto) 0.0 TH/MM3 Basophils # (Auto) 0.0 TH/MM3 CBC Comment DIFF FINAL Differential Comment Prothrombin Time 11.3 SEC Prothromb Time International Ratio 1.0 RATIO Activated Partial Thromboplast Time 32.7 SEC Blood Urea Nitrogen 25 MG/DL Creatinine 1.13 MG/DL Random Glucose 158 MG/DL Total Protein 7.1 GM/DL Albumin 3.5 GM/DL Calcium Level 9.3 MG/DL Alkaline Phosphatase 79 U/L Aspartate Amino Transf (AST/SGOT) 46 U/L Alanine Aminotransferase (ALT/SGPT) 102 U/L Total Bilirubin 0.6 MG/DL Sodium Level 134 MEQ/L Potassium Level 3.8 MEQ/L Chloride Level 101 MEQ/L Carbon Dioxide Level 25.5 MEQ/L Anion Gap 8 MEQ/L Estimat Glomerular Filtration Rate 46 ML/MIN Total Creatine Kinase 160 U/L Creatine Kinase MB 2.2 NG/ML Troponin I 0.03 NG/ML B-Type Natriuretic Peptide 236 PG/ML MDM Supervised Visit with MANDIE: Yes Narrative Course Patient care assumed from Miri Chi [facility] at 2300. This is a 86-year-old female who was brought in from assisted living facility for evaluation of cough. Chest x-ray is negative, labs are reassuring. She is sleeping soundly on my reassessment lungs are clear use nose and throat are reassuring. She appears well in no distress, vital signs within normal limits. Discussed empiric azithromycin for possible atypical pneumonia Tessalon for cough follow- up with her primary care physician and discussed return to ED criteria. She stable for discharge Diagnosis Primary Impression: Cough Patient Instructions: General Instructions Departure Forms: Tests/Procedures Disposition: 01 DISCHARGE HOME Condition: Stable Suraj Figueroa MD Nov 30, 2016 22:31
== END 2016-11-30 10:38 | disposition home or self-care (01) ==
LOC: NEPC 20:49 → NEDAMB 11-30 10:38
DX: R05 Cough (principal); R06.02 Shortness of breath; J44.9 Chronic obstructive pulmonary disease, unspecified; E78.00 Pure hypercholesterolemia, unspecified; M06.9 Rheumatoid arthritis, unspecified; R94.31 Abnormal electrocardiogram [ECG] [EKG]
CPT/HCPCS: 71010; 80053; 82550; 82552; 83880; 84484; 85025; 85610; 85730; 93005; 99285